=== PATIENT | female | born 2000 | race Caucasian/White ===

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

== ENCOUNTER 2022-03-01 16:31 | Emergency (ER) | payer OTHER ==
[2022-03-01 16:46] VITALS: BP 119/71; PULSE 81; RESP 18; TEMP 98.1; BMI 33.0
[2022-03-01] MEDS ORDERED: IBUPROFEN 600 MG TABLET (FP) PO ONE ×2 (17:25→17:38)
== END 2022-03-01 18:27 | disposition home or self-care (01) ==
LOC: JERFT 16:31
DX: S60.812A Abrasion of left wrist, initial encounter (principal); W54.0XXA Bitten by dog, initial encounter; Y92.9 Unspecified place or not applicable
CPT/HCPCS: 73030-TC-RT-FY; 99284-25

== ENCOUNTER 2022-03-19 20:45 | Emergency (ER) | payer OTHER ==
[2022-03-19 21:04] VITALS: BP 108/72; PULSE 85; RESP 20; TEMP 98.2; BMI 34.7
== END 2022-03-19 22:45 | disposition home or self-care (01) ==
LOC: JERFT 20:45
DX: S93.492A Sprain of other ligament of left ankle, initial encounter (principal); X50.0XXA Overexertion from strenuous movement or load, initial encounter
CPT/HCPCS: 73610-TC-LT-FY; 99283-25

== ENCOUNTER 2023-08-15 14:55 | Emergency (ER) | payer OTHER ==
[2023-08-15 15:06] VITALS: PULSE 85; BMI 37.1
[2023-08-15] MEDS ORDERED: predniSONE 20 MG TABLET (UD) PO ONE (16:26)
[2023-08-15] MEDS ORDERED: ALBUTEROL SO4 2.5/IPRATROPIUM 0.5 INH SOL 3 ML VIAL.NEB. NEB ONE ×2 (16:26→16:31)
[2023-08-15] MEDS ORDERED: predniSONE 20 MG TABLET (UD) ONE (16:31)
[2023-08-15 18:01] VITALS: BP 115/57; RESP 20; TEMP 98.8
== END 2023-08-15 18:04 | disposition home or self-care (01) ==
LOC: JERFT 14:55
PROC: 3E0F7GC Introduction of Other Therapeutic Substance into Respiratory Tract, Via Natural or Artificial Opening (ICD-10-PCS; principal; 2023-08-15)
DX: J45.901 Unspecified asthma with (acute) exacerbation (principal); R05.9 Cough, unspecified; Z20.822 Contact with and (suspected) exposure to COVID-19
CPT/HCPCS: 0241U-QW; 71046-TC-FY; 99284-25

== ENCOUNTER 2023-11-11 05:20 | Emergency (ER) | payer OTHER ==
[2023-11-11] MEDS ORDERED: ALBUTEROL SO4 2.5/IPRATROPIUM 0.5 INH SOL 3 ML VIAL.NEB. NEB ONE ×2 (05:27→05:39)
[2023-11-11 05:29] VITALS: BP 94/69; PULSE 96; RESP 19; TEMP 98; BMI 39.4
[2023-11-11] MEDS: ALBUTEROL SO4 2.5/IPRATROPIUM 0.5 INH SOL 3 ML VIAL.NEB. NEB SCH (05:45)
[2023-11-11] MEDS ORDERED: ALBUTEROL SO4 HFA INHALER IH ONE (05:53)
[2023-11-11] MEDS ORDERED: DEXAMETHASONE 4 MG TABLET (FP) ONE (05:54)
[2023-11-11] MEDS: ALBUTEROL SO4 HFA INHALER IH ONE (05:55)
[2023-11-11] MEDS: DEXAMETHASONE 4 MG TABLET (FP) PO ONE (05:56)
== END 2023-11-11 06:46 | disposition home or self-care (01) ==
LOC: JER 05:20
PROC: 3E0F7GC Introduction of Other Therapeutic Substance into Respiratory Tract, Via Natural or Artificial Opening (ICD-10-PCS; principal; 2023-11-11)
PROC: 3E0F7GC Introduction of Other Therapeutic Substance into Respiratory Tract, Via Natural or Artificial Opening (ICD-10-PCS; 2023-11-11)
DX: J45.901 Unspecified asthma with (acute) exacerbation (principal); R06.02 Shortness of breath; J34.89 Other specified disorders of nose and nasal sinuses; R09.81 Nasal congestion; Z20.822 Contact with and (suspected) exposure to COVID-19
CPT/HCPCS: 0241U-QW; 99284-25